=== PATIENT | female | born 1975 | race Two or more races ===

== ENCOUNTER 2021-04-14 11:21 | Outpatient (CLI) | payer OTHER | END 2021-04-14 11:31 | disposition home or self-care (01) | LOC: RAD 11:21 | PROVIDERS: ATTEND Orthopaedic Surgery | DX: M79.604 Pain in right leg (principal); M79.605 Pain in left leg; Z76.89 Persons encountering health services in other specified circumstances; M79.651 Pain in right thigh; M79.652 Pain in left thigh ==

== ENCOUNTER → 2021-05-12 08:06 | Outpatient (CLI) | payer OTHER ==
[~2021-05-12 08:06] MED LIST: CELLCEPT500 MG PO; CLONAZEPAM0.125 MG PO; NEURONTIN300 MG PO; RAYOS5 MG PO; ZOLOFT50 MG PO
== END | disposition home or self-care (01) ==
LOC: LAB 08:06
PROVIDERS: ATTEND Orthopaedic Surgery
DX: I10 Essential (primary) hypertension (principal); N39.0 Urinary tract infection, site not specified; B96.1 Klebsiella pneumoniae [K. pneumoniae] as the cause of diseases classified elsewhere; D64.89 Other specified anemias; E88.89 Other specified metabolic disorders; D68.8 Other specified coagulation defects; Z22.322 Carrier or suspected carrier of Methicillin resistant Staphylococcus aureus; I49.8 Other specified cardiac arrhythmias; Z76.89 Persons encountering health services in other specified circumstances; Z01.810 Encounter for preprocedural cardiovascular examination; Z01.811 Encounter for preprocedural respiratory examination; Z01.812 Encounter for preprocedural laboratory examination

== ENCOUNTER 2021-05-26 07:04 | Inpatient (IN) | payer OTHER ==
[~2021-05-26] VITALS: Ht 162.6 cm; Wt 85.7 kg
== END 2021-05-29 17:30 | disposition home or self-care (01) | DRG 470 ==
LOC: SURH 05-27 07:00 → O/R 05-27 07:15 → LDR 05-27 10:40 → SURH 05-27 10:44 → SURG 05-27 15:19
PROVIDERS: ADMIT Orthopaedic Surgery; ATTEND Orthopaedic Surgery
PROC: 0SRC0J9 Replacement of Right Knee Joint with Synthetic Substitute, Cemented, Open Approach (ICD-10-PCS; principal; 2021-05-27 07:00)
DX: M17.11 Unilateral primary osteoarthritis, right knee (principal); M21.061 Valgus deformity, not elsewhere classified, right knee

== ENCOUNTER 2024-07-18 06:20 | Outpatient (CLI) | payer OTHER ==
[2024-07-18 07:37] LABS: HEMATOCRIT 37.7 % (36.0-45.00); HEMOGLOBIN 12.5 g/dL (12.0-15.00); MEAN CELL VOLUME 87.4 fL (80.00-100.00); MEAN CORPUSCULAR HGB CONC 33.2 g/dl (32.0-36.0); PLATELET COUNT 210 K/uL (150-450); RED BLOOD COUNT 4.32 M/uL (4.00-6.00); RED CELL DISTRIBUTION WIDTH 13.7 % (11.5-14.5)
[2024-07-18 07:40] LABS: PH,URINE 5.5 (5.0-8.0); URINE APPEARANCE Clear; URINE BILIRRUBIN Negative (NEGATIVE); URINE BLOOD Negative; URINE COLOR Yellow; URINE GLUCOSE Negative (NEGATIVE); URINE KETONE Negative (NEGATIVE); URINE LEUKOCYTE Small; URINE NITRATE Negative; URINE PROTEIN Negative (NEGATIVE); URINE UROBILINOGEN 0.2 E.U./dl
[2024-07-18 07:42] LABS: URINE BACTERIA 291.2 uL (0.0-1933); URINE EPITHELIAL CELLS 17.8 uL (0.0-38.8); URINE RBC 4.5 uL (0.0-20.8); URINE WBC 36.5 uL (0.0-23.2)
[2024-07-18 07:47] LABS: URINE CAST 0.44 uL (0.0-1.40)
[2024-07-18 07:49] LABS: INR 1.01; PARTIAL THROMBOPLASTIN TIME 28.8 SECONDS (22.0-34.0)
[2024-07-18 08:54] LABS: COL EPI 83 SECONDS (82-175)
[2024-07-18 09:07] LABS: ALBUMIN 3.4 gm/dL (3.4-5.0); BILIRUBIN TOTAL 0.29 mg/dL (0.3-1.2); CALCIUM 8.9 mg/dL (8.5-10.1); CREATININE SERUM 0.66 mg/dL (0.55-1.02); GFR 95.19; GLOBULINA 2.9 G/DL (2.4-3.5); POTASSIUM 4.02 mEq/L (3.5-5.1); TOTAL PROTEIN 6.3 gm/dL (6.4-8.2)
== END 2024-07-18 06:28 | disposition home or self-care (01) ==
LOC: LAB 06:20
PROVIDERS: ATTEND Orthopaedic Surgery
DX: D64.9 Anemia, unspecified (principal); D68.8 Other specified coagulation defects; N39.0 Urinary tract infection, site not specified; E11.9 Type 2 diabetes mellitus without complications

== ENCOUNTER 2024-07-27 10:45 | Inpatient (IN) | payer OTHER ==
[~2024-07-27] VITALS: Ht 162.6 cm; Wt 86.2 kg
[2024-07-27] MEDS ORDERED: CYMBALTA60 MG PO (14:02)
[2024-07-27] MEDS ORDERED: ALLERGY NASAL17 ML (14:03)
[2024-07-27] MEDS ORDERED: XANAX1 MG PO (14:03)
[2024-07-27] MEDS ORDERED: TRAZODONE HCL50 MG PO (14:03)
[2024-07-27] MEDS ORDERED: ESTRADIOL1 MG PO (14:04)
[2024-07-27] MEDS ORDERED: FOLIC ACID0.8 M1 PO (14:04)
[2024-07-27 14:05] VITALS: BP 107/75
[2024-08-01] MEDS ORDERED: VANCOMYCIN HCL 1,000 MG VIAL ONE ×3 (11:50→19:37)
[2024-08-01] MEDS ORDERED: HYDROCORTISONE SODIUM SUCC/PF 100 MG VIAL ONE (11:50)
[2024-08-01] MEDS ORDERED: BUPIVACAINE HCL/MPF 0.5% 30ML VIAL ONE (12:55)
[2024-08-01] MEDS ORDERED: EPINEPHRINE HCL/PF 1 MG/ML AMPUL ONE (12:55)
[2024-08-01] MEDS ORDERED: LIDOCAINE HCL 1%/EPINEPHRINE 20ML VIAL IJ ONE (12:56)
[2024-08-01] MEDS ORDERED: TRANEXAMIC ACID 100MG/1ML (1000MG) AMPUL IV ONE (12:56)
[2024-08-01] MEDS ORDERED: POLYMYXIN B SULFATE 500,000 U VIAL ONE (12:56)
[2024-08-01] MEDS ORDERED: KETOROLAC TROMETHAMINE 60 MG VIAL IM ONE (14:18)
[2024-08-01] MEDS ORDERED: ISOPROPYL ALCOHOL 30 ML OUNCE TOP ONE (17:00)
[2024-08-01] MEDS ORDERED: MEPERIDINE HCL/PF 50 MG/ML VIAL IM PRN (17:45)
[2024-08-01] MEDS ORDERED: ONDANSETRON 4 MG TAB.RAPDIS PO PRN (17:45)
[2024-08-01] MEDS ORDERED: ONDANSETRON HCL 2 MG/ML VIAL IV PRN (17:45)
[2024-08-01] MEDS ORDERED: PROMETHAZINE HCL 50 MG/ML AMPUL IM PRN (17:45)
[2024-08-01] MEDS ORDERED: SODIUM CHLORIDE 0.45 % 1,000 ML IV SCH (17:45)
[2024-08-01] MEDS ORDERED: TRAMADOL HCL 50 MG TABLET PO PRN (17:45)
[2024-08-01] MEDS ORDERED: MORPHINE SULFATE 4 MG/ML VIAL IV ONE (19:55)
[2024-08-01] MEDS ORDERED: PROMETHAZINE HCL 50 MG/ML AMPUL IM ONE (20:13)
[2024-08-01] MEDS ORDERED: VANCOMYCIN HCL 5 MG/ML REDILUIDO IV SCH (21:00)
[2024-08-01] MEDS ORDERED: ACETAMINOPHEN 325 MG TABLET PO SCH (21:00)
[2024-08-01 22:07] VITALS: BP 97/63; O2SAT 98
[2024-08-02 02:38] VITALS: BP 131/68; O2SAT 100
[2024-08-02 08:00] VITALS: BP 137/69; O2SAT 100
[2024-08-02 08:12] LABS: HEMATOCRIT 30.5 % (36.0-45.00); HEMOGLOBIN 10.6 g/dL (12.0-15.00); MEAN CELL VOLUME 86.2 fL (80.00-100.00); MEAN CORPUSCULAR HEMOGLOBIN 29.9 pg (27.00-32.0); MEAN CORPUSCULAR HGB CONC 34.7 g/dl (32.0-36.0); RED BLOOD COUNT 3.54 M/uL (4.00-6.00); RED CELL DISTRIBUTION WIDTH 13.6 % (11.5-14.5)
[2024-08-02 08:39] LABS: PLATELET COUNT 179 K/uL (150-450)
[2024-08-02] MEDS ORDERED: RIVAROXABAN 10 MG TAB PO SCH (09:00)
[2024-08-02] MEDS ORDERED: PREDNISONE 10 MG TABLET PO SCH (09:00)
[2024-08-02] MEDS ORDERED: PANTOPRAZOLE SODIUM 40 MG TABLET.DR PO SCH (09:00)
[2024-08-02 16:00] VITALS: BP 130/76; O2SAT 99
[2024-08-02] MEDS ORDERED: Duloxetine HCl 60 MG CAPSULE.DR PO SCH (17:42)
[2024-08-02] MEDS ORDERED: IRON FUM,PS/FOLIC/BCOMP,C NO.9 1 CAP CAPSULE PO SCH (20:18)
[2024-08-02 20:46] LABS: ALBUMIN 2.9 gm/dL (3.4-5.0); BILIRUBIN TOTAL 0.98 mg/dL (0.3-1.2); CALCIUM 8.5 mg/dL (8.5-10.1); CREATININE SERUM 0.62 mg/dL (0.55-1.02); GFR 102.31; GLOBULINA 2.7 G/DL (2.4-3.5); POTASSIUM 3.89 mEq/L (3.5-5.1); TOTAL PROTEIN 5.6 gm/dL (6.4-8.2)
[2024-08-03] VITALS: BP 114/66; O2SAT 95
[2024-08-03 07:42] LABS: HEMATOCRIT 27.7 % (36.0-45.00); HEMOGLOBIN 9.6 g/dL (12.0-15.00); MEAN CELL VOLUME 85.9 fL (80.00-100.00); MEAN CORPUSCULAR HEMOGLOBIN 29.9 pg (27.00-32.0); MEAN CORPUSCULAR HGB CONC 34.8 g/dl (32.0-36.0); PLATELET COUNT 179 K/uL (150-450); RED BLOOD COUNT 3.22 M/uL (4.00-6.00); RED CELL DISTRIBUTION WIDTH 13.9 % (11.5-14.5)
[2024-08-03] MEDS ORDERED: SENNA/DOCUSATE SODIUM 1 TAB TABLET PO SCH (09:00)
[2024-08-03 09:52] VITALS: BP 112/74; O2SAT 95
== END 2024-08-03 17:34 | disposition home or self-care (01) | DRG 470 ==
LOC: O/R 08-01 07:18 → SURH 08-01 07:18
PROVIDERS: ADMIT Orthopaedic Surgery; ATTEND Orthopaedic Surgery
PROC: 0SRD0J9 Replacement of Left Knee Joint with Synthetic Substitute, Cemented, Open Approach (ICD-10-PCS; principal; 2024-08-01 12:30)
DX: M17.12 Unilateral primary osteoarthritis, left knee (principal); M32.9 Systemic lupus erythematosus, unspecified; D64.9 Anemia, unspecified

== ENCOUNTER 2024-08-04 16:25 | Inpatient (IN) | payer OTHER ==
[~2024-08-04] VITALS: Ht 162.6 cm; Wt 0.5 kg
[~2024-08-04 16:25] MED LIST changes: +ALLERGY NASAL17 ML; +CYMBALTA60 MG PO; +ESTRADIOL1 MG PO; +FOLIC ACID0.8 M1 PO; +TRAZODONE HCL50 MG PO; +XANAX1 MG PO
[2024-08-04] MEDS ORDERED: VANCOMYCIN HCL 1,000 MG VIAL IV SCH (21:00)
[2024-08-04] MEDS ORDERED: 0.9 % SODIUM CHLORIDE 1,000 ML IV SCH (21:00)
[2024-08-04] MEDS ORDERED: ALPRAzolam 1 MG TABLET PO SCH (21:00)
[2024-08-04] MEDS ORDERED: FAMOTIDINE/PF 20 MG in 0.9 % SODIUM CHLORIDE 8 ML IV PUSH SCH (21:01)
[2024-08-04] MEDS ORDERED: CIPROFLOXACIN IN 5 % DEXTROSE 200 ML IV SCH (21:01)
[2024-08-04] MEDS ORDERED: ACETAMINOPHEN 500 MG GEL..CAP PO PRN (21:15)
[2024-08-04] MEDS ORDERED: VANCOMYCIN HCL 1,000 MG VIAL ONE (21:54)
[2024-08-04] MEDS ORDERED: FAMOTIDINE/PF 20 MG/2 ML VIAL ONE (21:54)
[2024-08-04 22:00] LABS: HEMATOCRIT 25.3 % (36.0-45.00); MEAN CELL VOLUME 87.2 fL (80.00-100.00); MEAN CORPUSCULAR HGB CONC 33.5 g/dl (32.0-36.0); PLATELET COUNT 223 K/uL (150-450); RED CELL DISTRIBUTION WIDTH 13.8 % (11.5-14.5)
[2024-08-04 22:01] LABS: HEMOGLOBIN 8.5 g/dL (12.0-15.00); MEAN CORPUSCULAR HEMOGLOBIN 29.3 pg (27.00-32.0)
[2024-08-04 22:12] LABS: INR 1.12; PARTIAL THROMBOPLASTIN TIME 35.7 SECONDS (22.0-34.0); PROTHROMBIN TIME 12.1 SECONDS (9.0-11.5)
[2024-08-04 22:19] LABS: ERYTHROCYTE SEDIMENTATION RATE 28 mm/hr
[2024-08-04 22:20] LABS: ALBUMIN 2.6 gm/dL (3.4-5.0); BILIRUBIN TOTAL 0.61 mg/dL (0.3-1.2); CALCIUM 8.4 mg/dL (8.5-10.1); CREATININE SERUM 0.68 mg/dL (0.55-1.02); GFR 91.96; POTASSIUM 3.67 mEq/L (3.5-5.1); TOTAL PROTEIN 5.6 gm/dL (6.4-8.2)
[2024-08-04 22:23] LABS: C-REACTIVE PROTEIN 17.5 MG/DL (0.00-0.29)
[2024-08-04 22:24] VITALS: BP 99/69; O2SAT 99
[2024-08-04 22:56] LABS: PH,URINE 6.5 (5.0-8.0); URINE APPEARANCE Clear; URINE BILIRRUBIN Small (NEGATIVE); URINE BLOOD Negative; URINE COLOR Dark Yellow; URINE GLUCOSE Negative (NEGATIVE); URINE KETONE 15 (NEGATIVE); URINE LEUKOCYTE Moderate; URINE NITRATE Negative; URINE PROTEIN Trace (NEGATIVE)
[2024-08-04 22:59] LABS: URINE CAST 12.66 uL (0.0-1.40); URINE EPITHELIAL CELLS 174.9 uL (0.0-38.8); URINE WBC 54.1 uL (0.0-23.2)
[2024-08-05 01:39] VITALS: BP 98/65; O2SAT 100
[2024-08-05 02:21] VITALS: BP 91/59; O2SAT 98
[2024-08-05 06:32] VITALS: BP 112/63
[2024-08-05] MEDS ORDERED: VANCOMYCIN HCL 1,000 MG VIAL ONE (07:50)
[2024-08-05 08:00] VITALS: BP 93/57; O2SAT 96
[2024-08-05] MEDS ORDERED: FOLIC ACID 1 MG TABLET PO SCH (09:00)
[2024-08-05] MEDS ORDERED: PREDNISONE 10 MG TABLET PO SCH (09:00)
[2024-08-05] MEDS ORDERED: Duloxetine HCl 60 MG CAPSULE.DR PO SCH (09:00)
[2024-08-05] MEDS ORDERED: ENOXAPARIN SODIUM 40 MG/0.4 ML SYRINGE SUBCUTANEO SCH (09:00)
[2024-08-05] MEDS ORDERED: LACTOBACILLUS ACIDOPHILUS 1 CAP CAP PO SCH (09:00)
[2024-08-05] MEDS ORDERED: OxyCODONE HCL/APAP UD (PERCOCET) PO PRN (12:45)
[2024-08-05] MEDS ORDERED: METRONIDAZOLE/SODIUM CHLORIDE 500 MG/100 ML PIGGYBACK IV STA (15:47)
[2024-08-05 16:00] VITALS: BP 100/59; O2SAT 100
[2024-08-05] MEDS ORDERED: MUPIROCIN 22 GM OINT..GM TUBE NASAL SCH (17:00)
[2024-08-05] MEDS ORDERED: LINEZOLID IN DEXTROSE 5% 300 ML IV SCH (21:00)
[2024-08-06] MEDS ORDERED: METRONIDAZOLE/SODIUM CHLORIDE 500 MG/100 ML PIGGYBACK IV SCH (01:00)
[2024-08-06 02:16] VITALS: BP 139/81; O2SAT 97
[2024-08-06 08:00] VITALS: BP 115/61; O2SAT 97
[2024-08-06] MEDS ORDERED: CHLORHEXIDINE GLUCONATE 120 ML BOTTLE TOP SCH (09:00)
[2024-08-06 17:23] LABS: HEMATOCRIT 28.5 % (36.0-45.00); HEMOGLOBIN 9.4 g/dL (12.0-15.00); MEAN CELL VOLUME 88.5 fL (80.00-100.00); MEAN CORPUSCULAR HEMOGLOBIN 29.2 pg (27.00-32.0); PLATELET COUNT 256 K/uL (150-450); RED BLOOD COUNT 3.22 M/uL (4.00-6.00); RED CELL DISTRIBUTION WIDTH 13.7 % (11.5-14.5)
[2024-08-06 19:44] VITALS: BP 130/83; O2SAT 100
[2024-08-07 01:03] VITALS: BP 137/80; O2SAT 96
[2024-08-07] MEDS ORDERED: MORPHINE SULFATE 4 MG/ML VIAL IV ONE ×2 (14:05→15:35)
[2024-08-07] MEDS ORDERED: SUGAMMADEX SODIUM 200 MG/2 ML VIAL IV ONE (15:00)
[2024-08-07] MEDS ORDERED: VANCOMYCIN HCL 1,000 MG VIAL IV ONE (15:00)
[2024-08-07] MEDS ORDERED: TRANEXAMIC ACID 100MG/1ML (1000MG) AMPUL IV ONE (15:00)
[2024-08-07 15:38] LABS: HEMATOCRIT 24.8 % (36.0-45.00); MEAN CELL VOLUME 86.9 fL (80.00-100.00); MEAN CORPUSCULAR HGB CONC 33.7 g/dl (32.0-36.0); PLATELET COUNT 256 K/uL (150-450); RED BLOOD COUNT 2.85 M/uL (4.00-6.00); RED CELL DISTRIBUTION WIDTH 14.1 % (11.5-14.5)
[2024-08-07 15:42] LABS: HEMOGLOBIN 8.3 g/dL (12.0-15.00); MEAN CORPUSCULAR HEMOGLOBIN 29.1 pg (27.00-32.0)
[2024-08-07] MEDS ORDERED: TRAMADOL HCL 50 MG TABLET PO PRN (16:15)
[2024-08-07] MEDS ORDERED: PROMETHAZINE HCL 50 MG/ML AMPUL IM PRN (16:15)
[2024-08-07] MEDS ORDERED: SODIUM CHLORIDE 0.45 % 1,000 ML IV SCH (16:15)
[2024-08-07] MEDS ORDERED: MEPERIDINE HCL/PF 50 MG/ML VIAL IM PRN (16:15)
[2024-08-07] MEDS ORDERED: MEPERIDINE HCL 50 MG/ML AMPUL IV ONE (17:00)
[2024-08-07] MEDS ORDERED: METRONIDAZOLE/SODIUM CHLORIDE 500 MG/100 ML PIGGYBACK IV ONE (17:49)
[2024-08-07 18:40] VITALS: BP 141/69
[2024-08-08 00:28] VITALS: BP 135/64; O2SAT 100
[2024-08-08] MEDS ORDERED: HYDROCORTISONE SODIUM SUCC/PF 100 MG VIAL IV ONE (08:15)
[2024-08-08 09:40] VITALS: BP 119/62; O2SAT 100
[2024-08-08] MEDS ORDERED: HYDROCORTISONE SODIUM SUCC/PF 100 MG VIAL IV NR (12:45)
[2024-08-08 16:34] VITALS: BP 124/77; O2SAT 100
[2024-08-08 18:41] LABS: HEMATOCRIT 33.3 % (36.0-45.00); HEMOGLOBIN 10.9 g/dL (12.0-15.00); MEAN CELL VOLUME 87.2 fL (80.00-100.00); MEAN CORPUSCULAR HEMOGLOBIN 28.4 pg (27.00-32.0); MEAN CORPUSCULAR HGB CONC 32.6 g/dl (32.0-36.0); PLATELET COUNT 328 K/uL (150-450); RED BLOOD COUNT 3.82 M/uL (4.00-6.00); RED CELL DISTRIBUTION WIDTH 14.1 % (11.5-14.5)
[2024-08-08] MEDS ORDERED: FAMOTIDINE/PF 20 MG in 0.9 % SODIUM CHLORIDE 8 ML IV PUSH SCH (21:00)
[2024-08-09 03:26] VITALS: BP 116/62
[2024-08-09 09:01] LABS: HEMATOCRIT 24.6 % (36.0-45.00); MEAN CELL VOLUME 87.2 fL (80.00-100.00); MEAN CORPUSCULAR HGB CONC 34.1 g/dl (32.0-36.0); PLATELET COUNT 258 K/uL (150-450); RED BLOOD COUNT 2.83 M/uL (4.00-6.00); RED CELL DISTRIBUTION WIDTH 14.1 % (11.5-14.5)
[2024-08-09 09:09] VITALS: BP 139/67
[2024-08-09 09:10] LABS: HEMOGLOBIN 8.4 g/dL (12.0-15.00); MEAN CORPUSCULAR HEMOGLOBIN 29.6 pg (27.00-32.0)
[2024-08-09 16:00] VITALS: BP 143/73; O2SAT 98
[2024-08-10] VITALS: BP 109/71; O2SAT 98
[2024-08-10 07:09] LABS: MEAN CORPUSCULAR HGB CONC 34.7 g/dl (32.0-36.0); PLATELET COUNT 277 K/uL (150-450); RED BLOOD COUNT 2.68 M/uL (4.00-6.00); RED CELL DISTRIBUTION WIDTH 14.2 % (11.5-14.5)
[2024-08-10 07:13] LABS: HEMATOCRIT 23.1 % (36.0-45.00); MEAN CORPUSCULAR HEMOGLOBIN 29.8 pg (27.00-32.0)
[2024-08-10 08:21] VITALS: BP 125/76; O2SAT 99
[2024-08-10 15:52] VITALS: BP 139/66; O2SAT 100
[2024-08-11 00:53] VITALS: BP 140/88; O2SAT 100
[2024-08-11 08:00] VITALS: BP 122/76; O2SAT 99
[2024-08-11 12:45] LABS: HEMATOCRIT 31.5 % (36.0-45.00); MEAN CELL VOLUME 87.1 fL (80.00-100.00); MEAN CORPUSCULAR HEMOGLOBIN 29.5 pg (27.00-32.0); MEAN CORPUSCULAR HGB CONC 33.9 g/dl (32.0-36.0); PLATELET COUNT 327 K/uL (150-450); RED BLOOD COUNT 3.62 M/uL (4.00-6.00); RED CELL DISTRIBUTION WIDTH 14.8 % (11.5-14.5)
[2024-08-11 12:53] LABS: HEMOGLOBIN 10.7 g/dL (12.0-15.00)
[2024-08-11 14:09] LABS: ALBUMIN 2.8 gm/dL (3.4-5.0); BILIRUBIN TOTAL 0.63 mg/dL (0.3-1.2); CALCIUM 8.5 mg/dL (8.5-10.1); CREATININE SERUM 0.64 mg/dL (0.55-1.02); GFR 98.63; GLOBULINA 2.6 G/DL (2.4-3.5); POTASSIUM 4.07 mEq/L (3.5-5.1); TOTAL PROTEIN 5.4 gm/dL (6.4-8.2)
== END 2024-08-11 14:37 | disposition home or self-care (01) | DRG 464 ==
LOC: ER 16:28 → SURH 21:51
PROVIDERS: General Practice; Internal Medicine; Orthopaedic Surgery; ADMIT Internal Medicine; ATTEND Internal Medicine
PROC: 8E0ZXY6 Isolation (ICD-10-PCS; 2024-08-05)
PROC: 0SBD4ZZ Excision of Left Knee Joint, Percutaneous Endoscopic Approach (ICD-10-PCS; 2024-08-07)
PROC: 3E1U38Z Irrigation of Joints using Irrigating Substance, Percutaneous Approach (ICD-10-PCS; 2024-08-07)
PROC: 0SPD0JZ Removal of Synthetic Substitute from Left Knee Joint, Open Approach (ICD-10-PCS; principal; 2024-08-07 11:00)
DX: T84.59XA Infection and inflammatory reaction due to other internal joint prosthesis, initial encounter (principal); D68.62 Lupus anticoagulant syndrome; D64.9 Anemia, unspecified

== ENCOUNTER 2024-12-25 15:45 | Outpatient (CLI) | payer OTHER | END 2024-12-25 15:52 | disposition home or self-care (01) | LOC: LAB 15:45 | PROVIDERS: ATTEND Orthopaedic Surgery | DX: E55.9 Vitamin D deficiency, unspecified (principal); M85.9 Disorder of bone density and structure, unspecified; E56.1 Deficiency of vitamin K ==

== ENCOUNTER 2025-06-20 09:32 | Outpatient (CLI) | payer OTHER ==
[2025-06-20 11:46] LABS: ALT/SGPT 17.0 U/L (12-78); AST/SGOT 9.0 U/L (15-37); BILIRUBIN TOTAL 0.58 mg/dL (0.3-1.2); BUN CREA RATIO 17.0 (7.0-25.0); CREATININE SERUM 0.72 mg/dL (0.55-1.02); GFR 85.74; GLOBULINA 3.4 G/DL (2.4-3.5); GLUCOSE FASTING 89.0 mg/dL (65-100); OSMOLALITY SERUM 280.0 MOSM/KG (275-295)
[2025-06-21 16:07] LABS: CALCIUM IONIZED 5.3 mg/dL (4.5-5.6)
[2025-06-24 00:06] LABS: VITAMIN K 0.19 ng/mL (0.10-2.20)
== END 2025-06-20 09:43 | disposition home or self-care (01) ==
LOC: LAB 09:32
PROVIDERS: ATTEND Orthopaedic Surgery
DX: E55.9 Vitamin D deficiency, unspecified (principal); M85.9 Disorder of bone density and structure, unspecified; E56.1 Deficiency of vitamin K; E21.3 Hyperparathyroidism, unspecified; E88.9 Metabolic disorder, unspecified; M81.8 Other osteoporosis without current pathological fracture